=== PATIENT | male | born 1970 | race Caucasian/White ===

== ENCOUNTER 2017-10-05 10:41 | Observation (INO) | payer OTHER ==
[~2017-10-05] VITALS: Ht 175.3 cm; Wt 110.7 kg
[2017-10-05 11:19] LABS: BASOPHIL % 0.7 % (0-2); PLATELET COUNT 246 x10^3mcL (130-400); RED CELL DISTRIBUTION WIDTH 13.5 % (11.5-14.5)
[2017-10-05 11:30] LABS: CALCIUM 9.8 mg/dL (8.5-10.1); CARBON DIOXIDE 29.6 mmol/L (21-32); CHLORIDE SERUM 98 mmol/L (98-107); CREATININE SERUM 1.1 mg/dL (0.7-1.3); GFR1 > 60 mL/min; GLUCOSE SERUM 226 mg/dL (74-106); POTASSIUM SERUM 4.2 mmol/L (3.5-5.1); SODIUM SERUM 139 mmol/L (136-145)
[2017-10-05 11:35] LABS: ALBUMIN 4.4 g/dL (3.4-5.0); ALKALINE PHOSPHATASE 56 U/L (46-116); ALT/SGPT 106 U/L (16-63); AST/SGOT 69 U/L (15-37); BILIRUBIN TOTAL 1.01 mg/dL (0.20-1.00); TOTAL PROTEIN, SERUM 7.8 g/dL (6.4-8.2)
[2017-10-05 12:17] LABS: AMPHETAMINE QUAL UR NONE DETECTED (NEG <=1000)
[2017-10-05] MEDS ORDERED: GLYBURIDE (12:19)
[2017-10-05] MEDS ORDERED: JANUMET (12:20)
[2017-10-05] MEDS ORDERED: FLAXSEED OIL (12:20)
[2017-10-05 13:18] LABS: CHOLESTEROL/HDL RATIO 2.7; MAGNESIUM 1.3 mg/dL (1.8-2.4); PHOSPHOROUS 4.2 mg/dL (2.5-4.9)
[2017-10-05 13:24] LABS: T3 TOTAL 0.75 ng/mL
[2017-10-05 13:29] LABS: FREE T4 0.79 ng/dL (0.76-1.46); FREE THYROXINE INDEX 1.9 ug/dL (1.4-4.5); T4(THYROXINE) 5.7 ug/dL (4.7-13.3)
[2017-10-05 14:48] VITALS: BP 139/93
[2017-10-05] MEDS ORDERED: CARVEDILOL6.25 M1 PO (17:45)
[2017-10-05] MEDS ORDERED: GLYBURIDE5 MG PO (17:45)
[2017-10-05] MEDS ORDERED: AMLODIPINE BESYL5 M2 PO (17:46)
[2017-10-05] MEDS ORDERED: LIPITOR40 MG PO (17:47)
[2017-10-05] MEDS ORDERED: FENOFIBRATE MI130 MG PO (17:47)
[2017-10-05 21:51] VITALS: BP 105/71
[2017-10-06 05:32] VITALS: BP 133/85
[2017-10-06 06:47] LABS: BASOPHIL % 0.5 % (0-2); PLATELET COUNT 200 x10^3mcL (130-400); RED CELL DISTRIBUTION WIDTH 13.5 % (11.5-14.5)
[2017-10-06 07:39] LABS: CARBON DIOXIDE 26.3 mmol/L (21-32); CREATININE SERUM 1.6 mg/dL (0.7-1.3); MAGNESIUM 1.6 mg/dL (1.8-2.4); PHOSPHOROUS 3.4 mg/dL (2.5-4.9); POTASSIUM SERUM 4.1 mmol/L (3.5-5.1)
[2017-10-06 08:03] VITALS: Ht 175.3 cm; Wt 110.7 kg
[2017-10-06 09:38] VITALS: BP 114/70
[2017-10-06] MEDS ORDERED: FOL1 PO (12:13)
[2017-10-06] MEDS ORDERED: THERAGRAN-M1 TA4 PO (12:14)
[2017-10-06] MEDS ORDERED: THI100 PO (12:14)
[2017-10-06] MEDS ORDERED: ATIVAN1 MG PO (12:18)
[2017-10-06 13:32] VITALS: BP 111/71
== END 2017-10-06 14:46 | disposition home or self-care (01) | DRG 73 ==
LOC: ED 10:41 → DU 12:10
PROVIDERS: Emergency Medicine; Family Medicine
DX: G90.9 Disorder of the autonomic nervous system, unspecified (principal); N17.0 Acute kidney failure with tubular necrosis; F10.288 Alcohol dependence with other alcohol-induced disorder; K70.0 Alcoholic fatty liver; E83.42 Hypomagnesemia; F41.9 Anxiety disorder, unspecified; I16.0 Hypertensive urgency; D17.24 Benign lipomatous neoplasm of skin and subcutaneous tissue of left leg; E11.65 Type 2 diabetes mellitus with hyperglycemia; F19.10 Other psychoactive substance abuse, uncomplicated; E66.9 Obesity, unspecified; Z68.36 Body mass index [BMI] 36.0-36.9, adult
CPT/HCPCS: 82962; 83880; 84439; G0378; G0480; J2060; J3475; J3490; J7030; Q0092

== ENCOUNTER 2018-05-03 08:03 | Emergency (ER) | payer OTHER ==
[~2018-05-03 08:03] MED LIST: AMLODIPINE BESYL5 M2 PO; ATIVAN1 MG PO; CARVEDILOL6.25 M1 PO; FENOFIBRATE MI130 MG PO; FLAXSEED OIL; FOL1 PO; GLYBURIDE; GLYBURIDE5 MG PO; JANUMET; LIPITOR40 MG PO; THERAGRAN-M1 TA4 PO; THI100 PO
[2018-05-03 08:07] VITALS: Ht 175.3 cm
[2018-05-03 08:47] LABS: BASOPHIL % 0.5 % (0-2); PLATELET COUNT 204 x10^3mcL (130-400); RED CELL DISTRIBUTION WIDTH 14.1 % (11.5-14.5)
[2018-05-03 08:57] LABS: CARBON DIOXIDE 20.2 mmol/L (21-32); CHLORIDE SERUM 95 mmol/L (98-107); CREATININE SERUM 1.1 mg/dL (0.7-1.3); GFR1 > 60 mL/min; GLUCOSE SERUM 306 mg/dL (74-106); POTASSIUM SERUM 3.7 mmol/L (3.5-5.1); SODIUM SERUM 138 mmol/L (136-145)
[2018-05-03 09:02] LABS: ALBUMIN 4.4 g/dL (3.4-5.0); ALKALINE PHOSPHATASE 91 U/L (46-116); ALT/SGPT 114 U/L (16-63); AST/SGOT 141 U/L (15-37); BILIRUBIN TOTAL 1.28 mg/dL (0.20-1.00); HDL CHOLESTEROL 50 mg/dL (40-60); TOTAL PROTEIN, SERUM 7.8 g/dL (6.4-8.2)
[2018-05-03 09:11] LABS: CHOLESTEROL 232 mg/dL (<200); CHOLESTEROL/HDL RATIO 4.6; TRIGLYCERIDES 576 mg/dL (<150)
[2018-05-03 09:12] LABS: FREE T4 0.68 ng/dL (0.76-1.46); FREE THYROXINE INDEX 1.8 ug/dL (1.4-4.5); T4(THYROXINE) 5.7 ug/dL (4.7-13.3)
[2018-05-03 09:44] LABS: T3 TOTAL 0.6 ng/mL
[2018-05-03 09:54] LABS: AMPHETAMINE QUAL UR NONE DETECTED (See below)
[2018-05-03 10:21] VITALS: BP 161/117
[2018-05-03 10:22] LABS: UA SPECIFIC GRAVITY >=1.030 (1.005-1.035); microscopic required? YES; urine erythrocyte NEGATIVE (NEGATIVE)
== END 2018-05-03 10:25 | disposition home or self-care (01) ==
LOC: ED 08:03
PROVIDERS: Specialist
DX: F10.239 Alcohol dependence with withdrawal, unspecified (principal); F19.10 Other psychoactive substance abuse, uncomplicated; F41.9 Anxiety disorder, unspecified; E11.9 Type 2 diabetes mellitus without complications; I10 Essential (primary) hypertension; E78.00 Pure hypercholesterolemia, unspecified; Z90.89 Acquired absence of other organs
CPT/HCPCS: 36600; 82962; 84439; G0480; J2060; J3490; Q0092

== ENCOUNTER 2018-05-25 21:09 | Inpatient (IN) | payer OTHER ==
[~2018-05-25] VITALS: Ht 175.3 cm; Wt 106.1 kg
[2018-05-25 21:31] VITALS: Ht 175.3 cm; Wt 106.1 kg
[2018-05-25 22:34] LABS: UA SPECIFIC GRAVITY 1.025 (1.005-1.035); microscopic required? YES; urine erythrocyte NEGATIVE (NEGATIVE)
[2018-05-25 22:40] LABS: BASOPHIL % 0.2 % (0-2); PLATELET COUNT 175 x10^3mcL (130-400); RED CELL DISTRIBUTION WIDTH 13.2 % (11.5-14.5)
[2018-05-25 22:44] LABS: AMPHETAMINE QUAL UR NONE DETECTED (See below)
[2018-05-25 22:46] LABS: CARBON DIOXIDE 24.1 mmol/L (21-32); CHLORIDE SERUM 96 mmol/L (98-107); GFR1 > 60 mL/min; GLUCOSE SERUM 253 mg/dL (74-106); POTASSIUM SERUM 3.4 mmol/L (3.5-5.1); SODIUM SERUM 134 mmol/L (136-145)
[2018-05-25 22:49] LABS: ALBUMIN 4.5 g/dL (3.4-5.0); ALKALINE PHOSPHATASE 68 U/L (46-116); ALT/SGPT 92 U/L (16-63); AST/SGOT 97 U/L (15-37); BILIRUBIN TOTAL 0.9 mg/dL (0.20-1.00); LIPASE 268 IU/L (73-393); TOTAL PROTEIN, SERUM 7.8 g/dL (6.4-8.2)
[2018-05-26] MEDS ORDERED: JANUMET 50-1,01 EACH PO (01:41)
[2018-05-26] MEDS ORDERED: GLYBURIDE5 MG PO (01:41)
[2018-05-26] MEDS ORDERED: LOVAZA1 G1 PO (01:41)
[2018-05-26] MEDS ORDERED: NOR5 PO (01:42)
[2018-05-26] MEDS ORDERED: DIOVAN320 MG PO (01:42)
[2018-05-26] MEDS ORDERED: TRILIPIX135 M1 PO (01:42)
[2018-05-26] MEDS ORDERED: ATORVASTATIN CA40 M1 PO (01:42)
[2018-05-26 04:22] VITALS: BP 142/92
[2018-05-26] MEDS ORDERED: XANAX0.25 MG PO (13:47)
[2018-05-26 13:59] VITALS: BP 126/82
[2018-05-26 14:23] VITALS: BP 128/88
== END 2018-05-26 15:22 | disposition home or self-care (01) | DRG 392 ==
LOC: ED 21:09 → DU 05-26 01:15
PROVIDERS: Emergency Medicine
DX: K29.20 Alcoholic gastritis without bleeding (principal); F10.239 Alcohol dependence with withdrawal, unspecified; I10 Essential (primary) hypertension; E78.00 Pure hypercholesterolemia, unspecified; E78.5 Hyperlipidemia, unspecified; E11.65 Type 2 diabetes mellitus with hyperglycemia; F41.9 Anxiety disorder, unspecified; F32.9 Major depressive disorder, single episode, unspecified; Z90.49 Acquired absence of other specified parts of digestive tract; Z23 Encounter for immunization
CPT/HCPCS: 82962; 90658; G0480; J2060; J2270; J2405; J3411; J3475; J3490; J7030; Q0092; Q0162

== ENCOUNTER 2019-04-10 15:09 | Inpatient (IN) | payer OTHER ==
[~2019-04-10] VITALS: Ht 175.3 cm; Wt 101.6 kg
[~2019-04-10 15:09] MED LIST changes: +ATORVASTATIN CA40 M1 PO; +DIOVAN320 MG PO; +JANUMET 50-1,01 EACH PO; +LOVAZA1 G1 PO; +NOR5 PO; +TRILIPIX135 M1 PO; +XANAX0.25 MG PO
[2019-04-10 15:27] VITALS: Ht 175.3 cm; Wt 101.6 kg
[2019-04-10 16:12] LABS: PLATELET COUNT 160 x10^3mcL (130-400)
[2019-04-10 16:20] LABS: CALCIUM 8.3 mg/dL (8.5-10.1); CARBON DIOXIDE 23.8 mmol/L (21-32); CHLORIDE SERUM 92 mmol/L (98-107); CREATININE SERUM 0.9 mg/dL (0.7-1.3); GFR1 > 60 mL/min; GLUCOSE SERUM 266 mg/dL (74-106); POTASSIUM SERUM 3.3 mmol/L (3.5-5.1); SODIUM SERUM 136 mmol/L (136-145)
[2019-04-10 16:25] LABS: ALBUMIN 3.7 g/dL (3.4-5.0); ALKALINE PHOSPHATASE 168 U/L (46-116); ALT/SGPT 175 U/L (16-63); AST/SGOT 440 U/L (15-37); BILIRUBIN TOTAL 10.91 mg/dL (0.20-1.00); LIPASE 517 IU/L (73-393); TOTAL PROTEIN, SERUM 7.6 g/dL (6.4-8.2)
[2019-04-10 16:31] LABS: BASOPHIL % 0 % (0-2); RED CELL DISTRIBUTION WIDTH 15.2 % (11.5-14.5)
[2019-04-10] MEDS ORDERED: TRIBENZOR1 TA4 PO (21:22)
[2019-04-10] MEDS ORDERED: JANUMET 50-1,01 EACH PO (21:22)
[2019-04-10 23:23] VITALS: BP 140/91
[2019-04-11 05:35] VITALS: BP 160/97
[2019-04-11 06:26] LABS: BASOPHIL % 0.3 % (0-2); PLATELET COUNT 144 x10^3mcL (130-400)
[2019-04-11 06:39] LABS: ALBUMIN 3.4 g/dL (3.4-5.0); ALKALINE PHOSPHATASE 149 U/L (46-116); ALT/SGPT 155 U/L (16-63); AST/SGOT 396 U/L (15-37); BILIRUBIN DIRECT 9.36 mg/dL (0.0-0.2); BILIRUBIN TOTAL 11.22 mg/dL (0.20-1.00); CALCIUM 7.7 mg/dL (8.5-10.1); CARBON DIOXIDE 19.4 mmol/L (21-32); CHLORIDE SERUM 95 mmol/L (98-107); CREATININE SERUM 0.8 mg/dL (0.7-1.3); GFR1 > 60 mL/min; GLUCOSE SERUM 229 mg/dL (74-106); POTASSIUM SERUM 3.2 mmol/L (3.5-5.1); SODIUM SERUM 139 mmol/L (136-145)
[2019-04-11 06:52] LABS: RED CELL DISTRIBUTION WIDTH 15.5 % (11.5-14.5)
[2019-04-11 08:51] VITALS: BP 159/82
[2019-04-11 16:45] VITALS: BP 143/96
[2019-04-11 20:19] VITALS: BP 126/88
[2019-04-12 05:35] VITALS: BP 141/88
[2019-04-12 07:08] LABS: ALKALINE PHOSPHATASE 132 U/L (46-116); ALT/SGPT 137 U/L (16-63); AST/SGOT 295 U/L (15-37); BILIRUBIN DIRECT 10.34 mg/dL (0.0-0.2); CALCIUM 7.5 mg/dL (8.5-10.1); CARBON DIOXIDE 26.5 mmol/L (21-32); CHLORIDE SERUM 99 mmol/L (98-107); CREATININE SERUM 0.8 mg/dL (0.7-1.3); GFR1 > 60 mL/min; GLUCOSE SERUM 228 mg/dL (74-106); POTASSIUM SERUM 3.8 mmol/L (3.5-5.1); SODIUM SERUM 139 mmol/L (136-145); TOTAL PROTEIN, SERUM 6.6 g/dL (6.4-8.2)
[2019-04-12 07:27] LABS: BASOPHIL % 0.1 % (0-2); PLATELET COUNT 157 x10^3mcL (130-400)
[2019-04-12 07:40] LABS: RED CELL DISTRIBUTION WIDTH 15.5 % (11.5-14.5)
[2019-04-12 07:48] VITALS: BP 139/81
[2019-04-12 12:11] VITALS: BP 126/82
[2019-04-12] MEDS ORDERED: ORAPRED ODT30 MG PO (15:07)
[2019-04-12] MEDS ORDERED: LIB10 PO (15:07)
[2019-04-12 16:13] VITALS: BP 121/71
[2019-04-12 19:51] VITALS: BP 108/74
[2019-04-13 04:57] VITALS: BP 110/80
[2019-04-13 06:46] LABS: ALKALINE PHOSPHATASE 136 U/L (46-116); ALT/SGPT 135 U/L (16-63); AST/SGOT 317 U/L (15-37); CALCIUM 7.9 mg/dL (8.5-10.1); CARBON DIOXIDE 31.1 mmol/L (21-32); CHLORIDE SERUM 99 mmol/L (98-107); CREATININE SERUM 0.9 mg/dL (0.7-1.3); GFR1 > 60 mL/min; GLUCOSE SERUM 162 mg/dL (74-106); LIPASE 468 IU/L (73-393); POTASSIUM SERUM 3.3 mmol/L (3.5-5.1); SODIUM SERUM 139 mmol/L (136-145)
[2019-04-13 06:54] LABS: ALBUMIN 2.8 g/dL (3.4-5.0); TOTAL PROTEIN, SERUM 5.9 g/dL (6.4-8.2)
[2019-04-13 06:55] LABS: BILIRUBIN TOTAL 14.15 mg/dL (0.20-1.00)
[2019-04-13 07:36] VITALS: BP 112/72
[2019-04-13 11:52] VITALS: BP 135/97
[2019-04-13 12:07] VITALS: BP 135/97
== END 2019-04-13 12:25 | disposition home or self-care (01) | DRG 432 ==
LOC: ED 15:09 → MU 22:28
PROVIDERS: Emergency Medicine; Internal Medicine Pulmonary Disease; ADMIT Internal Medicine Pulmonary Disease
DX: K70.10 Alcoholic hepatitis without ascites (principal); K85.90 Acute pancreatitis without necrosis or infection, unspecified; E11.9 Type 2 diabetes mellitus without complications; I10 Essential (primary) hypertension; E78.5 Hyperlipidemia, unspecified; Z90.49 Acquired absence of other specified parts of digestive tract; F10.20 Alcohol dependence, uncomplicated; Y90.9 Presence of alcohol in blood, level not specified; K70.30 Alcoholic cirrhosis of liver without ascites
CPT/HCPCS: 82962; G0378; J2060; J2270; J2405; J2920; J3480; J7030; J7510

== ENCOUNTER 2019-06-26 23:45 | Inpatient (IN) | payer OTHER ==
[~2019-06-26] VITALS: Ht 175.3 cm; Wt 103.0 kg
[~2019-06-26 23:45] MED LIST changes: +LIB10 PO; +ORAPRED ODT30 MG PO; +TRIBENZOR1 TA4 PO; -XANAX0.25 MG PO
[2019-06-26 23:50] VITALS: Ht 175.3 cm; Wt 103.0 kg
--- NOTE | 2019-06-27 00:08 | NUR ---
PATIENT SEEN WITH COMPLAINT OF DIZZINESS AND HEART PALPITATION. PATIENT IS WAITING FOR MD EVALUATION.
--- NOTE | 2019-06-27 00:47 | NUR ---
PATIENT WAS SEEN BY MD. SALINE LOCK INSERTED. PATIENT MEDICATED WITH ATIVAN AND SALINE BOLUS IS INFUSING.
--- NOTE | 2019-06-27 00:48 | NUR ---
PARTABLE CHEST XRAY WAS DONE. REVIEW RN AT THE BEDSIDE, BLOOD WAS DRAWN.
--- NOTE | 2019-06-27 01:01 | NUR ---
ENCOURAGED PT TO PROVIDE URINE SAMPLE. REPORTS THAT HE WILL ATTEMPT WHEN HE IS ABLE TO.
[2019-06-27 01:08] LABS: PLATELET COUNT 108 x10^3mcL (130-400); RED CELL DISTRIBUTION WIDTH 14.6 % (11.5-14.5)
[2019-06-27 01:16] LABS: ALKALINE PHOSPHATASE 252 U/L (46-116); ALT/SGPT 81 U/L (16-63); AST/SGOT 303 U/L (15-37); CALCIUM 7.9 mg/dL (8.5-10.1); CARBON DIOXIDE 27.7 mmol/L (21-32); CHLORIDE SERUM 83 mmol/L (98-107); CREATININE SERUM 0.5 mg/dL (0.7-1.3); GFR1 > 60 mL/min; GLUCOSE SERUM 191 mg/dL (74-106); LIPASE 153 IU/L (73-393)
[2019-06-27 01:21] LABS: BAND NEUTROPHIL 1 % (0-10); BASOPHIL 0 % (0-2); MONOCYTE 3 % (0-7); SEGMENTED NEUTROPHILS 89 % (37-75)
[2019-06-27 01:22] LABS: rbc morphology (normal/abnorm) ABNORMAL (NORMAL)
[2019-06-27 01:28] LABS: ALBUMIN 2.2 g/dL (3.4-5.0); CHOLESTEROL 362 mg/dL (<200); CHOLESTEROL/HDL RATIO 45.3; HDL CHOLESTEROL 8 mg/dL (40-60); TOTAL PROTEIN, SERUM 6.1 g/dL (6.4-8.2); TRIGLYCERIDES 347 mg/dL (<150)
[2019-06-27 01:30] LABS: POTASSIUM SERUM 2.7 mmol/L (3.5-5.1); SODIUM SERUM 123 mmol/L (136-145)
[2019-06-27 01:31] LABS: BILIRUBIN TOTAL 19.98 mg/dL (0.20-1.00)
[2019-06-27 01:32] LABS: FREE T4 0.96 ng/dL (0.76-1.46); FREE THYROXINE INDEX 1.8 ug/dL (1.4-4.5); T4(THYROXINE) 5.4 ug/dL (4.7-13.3)
[2019-06-27 02:15] LABS: T3 TOTAL 0.71 ng/mL
--- NOTE | 2019-06-27 03:56 | NUR ---
REPORT WAS GIVEN TO MARY. PATIENT TRANSPORTED TO ROOM. MAGNESIUM INFUSING 225 ML/HR, PTASSIUM 10 MEQ/100 ML @ 50 ML/HR. SALINE INFUSING @ 100 ML/HR.
[2019-06-27 04:10] VITALS: BP 133/86
--- NOTE | 2019-06-27 04:45 | NUR ---
RECEIVED 2ND BAG OF POTASSIUM CHLORIDE FROM ER NURSE YAKOV. HUNG 2ND BAG OF POTASSIUM CHLORIDE 20 MEQ BAG INFUSING AT 50ML/HR.
--- NOTE | 2019-06-27 05:50 | NUR ---
STATED HAVINGA ABD PAIN 03/15. STATED NORCO IS NOT EFFECTIVE FOR HIM. PAGED DR. CASTILLO.
--- NOTE | 2019-06-27 07:14 | NUR ---
EYES CLOSED, BREATHING EVEN AND UNLABORED ON ROOM AIR. CALL LIGHT WITHIN EASY REACH. IN NO ACUTE DISTRESS. ENDORSED TO NURSE DANIEL.
--- NOTE | 2019-06-27 07:30 | NUR ---
RECIEVED REPORT FROM [facility] NURSE. PATIENT CURRENTLY AWAKE ALERT AND ORIENTED X 3. LUNG SOUNDS CLEAR TO AUSCULTATION. HEART RATE REGULAR. PATIENT REPORTS NAUSEA AND ABD PAIN OF 8. WILL MEDICATE PER EMAR. SAFETY PRECAUTIONS IN PLACE. CALL LIGHT WITHIN REACH.
[2019-06-27 08:04] VITALS: BP 109/77
[2019-06-27 11:23] LABS: UA SPECIFIC GRAVITY 1.015 (1.005-1.035); microscopic required? YES; urine erythrocyte NEGATIVE (NEGATIVE)
[2019-06-27 11:33] VITALS: BP 131/75
[2019-06-27 11:55] LABS: AMPHETAMINE QUAL UR NONE DETECTED (See below)
[2019-06-27 16:23] VITALS: BP 132/76
--- NOTE | 2019-06-27 18:50 | NUR ---
PATIENT IS CURRENTLY STABLE AND RESTING IN BED. IV TO LEFT AC IS INTACT. PATIENT DOES NOT REPORT ANY PAIN OR NAUSEA AT THIS TIME. SAFETY PRECAUTIONS IN PLACE. WILL ENDORSE CARE TO NIGHT NURSE.
--- NOTE | 2019-06-27 20:00 | NUR ---
SHIFT REASSESSMENT DONE.PATIENT ALERT AND ORIENTED.MAKE NEEDS KNOWN TO STAFF.GIRLFRIEND AT BEDSIDE.SUPPORTIVE OF CARE.LR AT 150 CC/ HOUR.K+ RIDER INFUSING.MILD GEN WEAKNESS.TELE 33 SR.ON FULL LIQ DIET TODATY BECAUSE OF NAUSEA,NO NAUSEA AT START OF THE SHIFT.SKIN INTACT,MULTIPLE TATOES.WANTING SLEEPING PILL TONIGHT.HEP SQ GIVEN.CALL LIGHT IN REACH.
[2019-06-27 20:35] VITALS: BP 107/70
--- NOTE | 2019-06-27 22:54 | NUR ---
PATIENT TELE OFF,CHECKED ON HIM,URINE ALL OVER THE FLOOR,SAYS HE HAD ACCIDENT,HOUSEKEEPING COMING OVER TO CLEAN FLOOR,REMINDED TO USE URINAL ONLY,NOT TO GET UP,ETOH WITHDRAWAL.
--- NOTE | 2019-06-27 23:27 | NUR ---
LIBRIUM GIVEN AT THIS TIME,ETOH PROTOCOL.
--- NOTE | 2019-06-28 01:19 | NUR ---
CHECKED AT INTERVALS FOR NEEDS AND SAFETY.ASLEEP,CALL LIGHT IN REACH.
[2019-06-28 05:45] VITALS: BP 97/64
--- NOTE | 2019-06-28 06:33 | NUR ---
I AND O DUNG.APPLIED EXTENSION TUBING ON THE IV SITE.WILL ENDORSE TO NEXT SHIFT.
--- NOTE | 2019-06-28 07:24 | NUR ---
RECIEVED REPORT FROM [facility] NURSE. PATIENT OBSERVED SLEEPING. RESPIRATIONS EVEN AND UNLABORED WITHIN NORMAL RANGE. IV TO LAC CURRENTLY INFUSING LR AT 150/HOUR. BED IN THE LOW POSITION. CALL LIGHT WITHIN REACH. WILL CONTINUE TO MONITOR.
[2019-06-28 07:40] LABS: PLATELET COUNT 99 x10^3mcL (130-400); RED CELL DISTRIBUTION WIDTH 15.2 % (11.5-14.5)
[2019-06-28 07:52] LABS: ALKALINE PHOSPHATASE 246 U/L (46-116); ALT/SGPT 64 U/L (16-63); AST/SGOT 225 U/L (15-37); CARBON DIOXIDE 29.9 mmol/L (21-32); CHLORIDE SERUM 97 mmol/L (98-107); CREATININE SERUM 0.6 mg/dL (0.7-1.3); GFR1 > 60 mL/min; GLUCOSE SERUM 160 mg/dL (74-106); MAGNESIUM 1.9 mg/dL (1.8-2.4); POTASSIUM SERUM 3.5 mmol/L (3.5-5.1); SODIUM SERUM 133 mmol/L (136-145)
[2019-06-28 07:53] LABS: TOTAL PROTEIN, SERUM 5.6 g/dL (6.4-8.2)
[2019-06-28 07:55] LABS: BILIRUBIN TOTAL 22.12 mg/dL (0.20-1.00)
[2019-06-28 08:30] VITALS: BP 96/71
[2019-06-28 10:40] LABS: BAND NEUTROPHIL 2 % (0-10); BASOPHIL 0 % (0-2); MONOCYTE 4 % (0-7); SEGMENTED NEUTROPHILS 86 % (37-75)
[2019-06-28 10:41] LABS: rbc morphology (normal/abnorm) ABNORMAL (NORMAL)
[2019-06-28 10:43] LABS: target cell (codocyte) 2+
[2019-06-28 10:45] LABS: PLATELET MORPHOLOGY PLATELETS DECREASED
--- NOTE | 2019-06-28 11:16 | NUR ---
CRITICAL VALUE OF BILIRUBEN REPORTED BY SHLOMO. PHYSCIBEBA CURRENTLY AT BEDSIDE WITH PATIENT AND NOTIFIED OF BILIRUBEN LEVEL.
[2019-06-28 12:09] VITALS: BP 103/70
[2019-06-28 16:40] VITALS: BP 105/75
--- NOTE | 2019-06-28 18:50 | NUR ---
LR CURRENTLY INFUSING AT 150/HOUR TO LEFT AC. PATIENT RESTING IN BED. RESPIRATION EQUAL AND UNLABORED. GIRLFRIEND AT BEDSIDE. NO REPORT OF PAIN AT THIS TIME. BED IN LOW POSITION. WILL ENDROSE CARE TO NIGHT NIGHT NURSE.
--- NOTE | 2019-06-28 19:20 | NUR ---
RECEIVED PT IN BED RESTING WITH FAMILY AT BEDSIDE.LUNG SOUND CTA. BREATHING EVEN AND UNLABORED. DENIES ANY PAIN AT THIS TIME. BOWEL SOUND ACTIVE. ABDOMEN DISTENDED AND ROUND.IV SITE PATENT AND INTACT. BED IN LOWEST POSITION,CALL LIGHT WITHIN REACH. WILL CONTINUE TO MONITOR.
[2019-06-28 20:06] VITALS: BP 102/59
[2019-06-29 05:28] VITALS: BP 107/75
--- NOTE | 2019-06-29 05:51 | NUR ---
PT APPEARS TO BE SLEEPING. NO DISTRESS NOTED. NO C/O PAIN AT THIS TIME. BED IN LOWEST POSITION,CALL LIGHT WITHIN REACH. WILL CONTINUE TO MONITOR.
--- NOTE | 2019-06-29 06:51 | NUR ---
PT C/O ANXIETY. MEDICATED ATIVAN 2MG IVP ORDERED. WILL CONTINUE TO MONITOR.
--- NOTE | 2019-06-29 07:30 | NUR ---
CARE ENDORSED TO DAY NURSE ASHKAN.
[2019-06-29 08:00] LABS: PLATELET COUNT 114 x10^3mcL (130-400); RED CELL DISTRIBUTION WIDTH 15.5 % (11.5-14.5)
--- NOTE | 2019-06-29 08:00 | NUR ---
RECIEVED REPORT FROM [facility] NURSE. PATIENT AWAKE AND ALERT AND ORIENTED. NS INFUSING TO LAC AT 150/HOUR. NO REPORTS OF DISTRESS FROM PATIENT AT THIS TIME. BOWEL SOUNDS HYPOACTIVE. LATEST BOWEL MOVEMENT ON 06/28/19. RECIEVED CRITICAL REPORT FROM LAB OF BILIRUBEN LEVEL OF 22.0. PHYSICIAN PRESIDING OVER CARE NOTIFIED. LUNG SOUNDS CLEAR TO AUSCULTATION.
[2019-06-29 08:10] LABS: ALKALINE PHOSPHATASE 216 U/L (46-116); ALT/SGPT 57 U/L (16-63); AST/SGOT 171 U/L (15-37); CALCIUM 8.1 mg/dL (8.5-10.1); CARBON DIOXIDE 25.9 mmol/L (21-32); CHLORIDE SERUM 102 mmol/L (98-107); CREATININE SERUM 0.7 mg/dL (0.7-1.3); GFR1 > 60 mL/min; GLUCOSE SERUM 144 mg/dL (74-106); POTASSIUM SERUM 3.3 mmol/L (3.5-5.1); SODIUM SERUM 138 mmol/L (136-145)
[2019-06-29 08:26] VITALS: BP 107/69
[2019-06-29 08:41] LABS: ALBUMIN 1.9 g/dL (3.4-5.0); TOTAL PROTEIN, SERUM 5.4 g/dL (6.4-8.2)
[2019-06-29 10:42] LABS: BAND NEUTROPHIL 1 % (0-10); BASOPHIL 0 % (0-2); MONOCYTE 4 % (0-7); SEGMENTED NEUTROPHILS 85 % (37-75)
[2019-06-29 10:45] LABS: rbc morphology (normal/abnorm) ABNORMAL (NORMAL)
[2019-06-29 10:46] LABS: target cell (codocyte) 2+
[2019-06-29 12:14] VITALS: BP 95/66
--- NOTE | 2019-06-29 13:49 | NUR ---
1. Recommend advance diet as tolerated to Regular diet.
--- NOTE | 2019-06-29 13:49 | NUR ---
Initial Nutrition Assessment: Romero Lopez 255T-B Dx: Severe Hypokalemia and ETOH withdrawal PMHx: HTN, DM, high chol, alcoholic hepatitis PSHx: Appendectomy Labs: 06/29: K:3.3L, BH, Ca:8.1L, T bili:22H, AST:171H, H/H:11.3/33L (06/27) TH, LDL:343H, HDL:8L, Meds: Ativan, Cephulac, Diovan, Folic acid, Humulin, Lactated ringers, Librium, Mg sulfate, Prednisone, Prilosec, Vitamin B-1, Xanax, Zofran, Heparin Diet: Full liquid PO Intakes: 06/27: B:50% L:25% D:90% 06/28:B:80% D:60% PO intake: 61% Ht: 69in, 5'9: Wt:227#, 103kg BMI: 33.5kg/m2 (obese) IBW:160#73kg %IBW:142% UBW: Age: 48 y/o male Food Allergies: Skin: intact Carlos A:20 Edema: none GI: active bowel sounds Last BM:06/28 Nursing Trigger: poor PO >3days Per ER documents 06/27, pt presents with c/o heart palpitations, nausea and dizziness. Pt admits to binge drinking the past couple of days. Pt also with c/o abd distention. During visit, pt was asleep and unarousable. Per nurse note, pt's PO intake: 61% x 5 meals. Will continue to monitor. Problem with: N/V/D/C: no Problems with: Chewing/Swallowing: no Current appetite: fair Recent wt changes: %wt change: Vitamin/Supplement: unable to obtain Special Diet at Home: unable to obtain Physical activity: unable to obtain Education: unable to provide due to pt asleep Estimated Nutritional Needs Based on ideal body weight of 73kg. Energy: 1415-2909 kcal/d (25-30 kcal/kg for maintenance) Protein: 73 gm/d (1 gm/kg for maintenance) Fluid: 1825-2190mL/d (1 mL/kcal) or per MD. Nutrition Diagnosis 1. Inadequate protein/energy intake related to insufficient kcals per diet order as evidenced by pt on full liquid diet. Intervention 1. Recommend advance diet as tolerated to Regular diet. Monitor/Evaluate Goal: Monitor: PO intakes, Labs, GI function, Skin integrity, Weights. F/U in 3-5 days as moderate risk 07/02-
--- NOTE | 2019-06-29 14:07 | NUR ---
PATIENT CURRENTLY ASKING WHEN HE CAN BEGIN EATING REGULAR FOOD. PATIENT ON FULL LIQUID DIET X 2 DAYS. WILL COMMUNICATE WITH [employer] COLORING OPERATOR PHYSICIAN PROSIDING OVER PATIENT'S CARE.
[2019-06-29 17:53] VITALS: BP 95/68
--- NOTE | 2019-06-29 19:05 | NUR ---
PATIENT AWAKE AND ORIENTED RESTING IN BED. AT BEDSIDE. BED IN LOW POSITION. SAFETY PRECAUTIONS IN PLACE. WILL ENDORSE CARE TO NIGHT NURSE. LR CURRENTLY INFUSING AT 150/HR.
--- NOTE | 2019-06-29 19:30 | NUR ---
PT IS A/O X4, DROWSY. TELE #33, NSR. DENIES ANY CHEST PAIN OR PRESSURE. PULSES ARE PRESENT. NO EDEMA NOTED. LUNGS CLEAR IN ALL RO. ON RA, DENIES ANY SOB. EQUAL CHEST RISE AND FALL. BOWEL SOUNDS PRESENT X4. DENIES ANY ABD PAIN OR DISTRESS. GENERAL WEAKNESS. SKIN WARM AND INTACT. DENIES ANY PAIN AT THIS TIME. IV ON LAC INTACT AND PATENT. NO SIGN OF INFILTRATION OR IRRITATION. SPOUSE AT BEDISDE. BED IS AT LOWEST SETTING. CALL LIGHT WITHIN REACH. WILL CONTINUE TO MONTIOR.
[2019-06-29 20:20] VITALS: BP 95/59
--- NOTE | 2019-06-30 01:54 | NUR ---
PT IS RESTING IN BED. PT WAS C/O BEING ANXIOUS AND REQUESTED ATIVAN. IT WAS GIVEN PER EMAR. PT STATES HE IS MORE CALM. SPOUSE IS AT BEDSIDE. PT REFUSED LIBRIUM, EDUCATION WAS PROVIDED BUT PT REFUSED AGAIN, STATING HE IS NO LONGER GOING THROUGH WITHDRAWL. IV INTACT. BED IS AT LOWEST SETTING. CALL LIGHT WITHIN REACH. WILL CONTINUE TO MONTIOR.
--- NOTE | 2019-06-30 03:40 | NUR ---
PT IS C/O BEING RESTLESS. REQUESTED ATIVAN. GIVEN PER EMAR. WILL CONTINUE TO MONITOR.
[2019-06-30 05:27] VITALS: BP 107/70
--- NOTE | 2019-06-30 06:28 | NUR ---
PT IS RESTING IN BED. REFUSED THE LIBRIUM THIS MORNING. EDUCATION PROVIDED. PT STATED HE WILL ONLY TAKE IT IF THE DOSE WAS LOWERED. NO ACUTE EVENT OCCURED AT NIGHT. BED IS AT LOWEST SETTING. CALL LIGHT WITHIN REACH. WILL ENDORSE TO AM NURSE.
[2019-06-30 06:30] LABS: CALCIUM 7.7 mg/dL (8.5-10.1); CARBON DIOXIDE 23.6 mmol/L (21-32); CHLORIDE SERUM 104 mmol/L (98-107); CREATININE SERUM 0.7 mg/dL (0.7-1.3); GFR1 > 60 mL/min; GLUCOSE SERUM 133 mg/dL (74-106); POTASSIUM SERUM 3.7 mmol/L (3.5-5.1); SODIUM SERUM 137 mmol/L (136-145)
[2019-06-30 06:35] LABS: ALBUMIN 1.8 g/dL (3.4-5.0)
[2019-06-30 06:40] LABS: PLATELET COUNT 123 x10^3mcL (130-400); RED CELL DISTRIBUTION WIDTH 15.8 % (11.5-14.5)
[2019-06-30 07:11] LABS: ALT/SGPT 50 U/L (16-63); AST/SGOT 134 U/L (15-37); BILIRUBIN DIRECT 19.3 mg/dL (0.0-0.2)
[2019-06-30 07:12] LABS: ALKALINE PHOSPHATASE 200 U/L (46-116)
[2019-06-30 07:27] VITALS: BP 101/69
[2019-06-30 07:28] LABS: TOTAL PROTEIN, SERUM 5.2 g/dL (6.4-8.2)
--- NOTE | 2019-06-30 07:40 | NUR ---
RECEIVED IN NO RESP. DISTRESS. AWAKE AND ALERT. NO C/O PAIN AT THIS TIME. IVF INFUSING WELL AND SITE CLEAR. SAFERY MEASURES AND SEIZURE PREC. IN PLACE. CALL LIGHT WITHIN REACH. WILL CONTINUE WITH PLAN OF CARE.
--- NOTE | 2019-06-30 08:51 | NUR ---
PT COMPLAINT OF NAUSEA SO MEDICATED WITH ZOFRAN. PT ALSO GIVEN ATIVAN FOR ANXIETY.
[2019-06-30 11:53] VITALS: BP 105/63
[2019-06-30 12:16] LABS: BAND NEUTROPHIL 0 % (0-10); BASOPHIL 0 % (0-2); MONOCYTE 3 % (0-7); PLATELET MORPHOLOGY PLATELETS DECREASED; SEGMENTED NEUTROPHILS 83 % (37-75); rbc morphology (normal/abnorm) ABNORMAL (NORMAL)
--- NOTE | 2019-06-30 12:34 | NUR ---
ATIVAN GIVEN FOR ANXIETY PER ORDER.
--- NOTE | 2019-06-30 16:24 | NUR ---
FAMILY AT BEDSIDE. NO DISTRESS NOTED. NO C/O PAIN AT THIS TIME. IVF INFUSING WELL.
[2019-06-30 16:38] VITALS: BP 115/74
--- NOTE | 2019-06-30 18:59 | NUR ---
NURSING CO-SIGN THE DOCUMENTATION ENTERED BY THE STUDENT NURSE HAS BEEN REVIEWED. REVIEWED/CO-SIGNED BY: Dariana Bang DOCUMENTATION DONE BY: EMRE CASE-STUDENT NURSE
--- NOTE | 2019-06-30 19:00 | NUR ---
PT REMAINS IN NO DISTRESS, CALM AT THIS TIME. NO C/O PAIN AT THIS TIME. FAMILY AT BEDSIDE. IVF INFUSING WELL AND NEW LINE PATENT. VS WNL. CALL LIGHT WITHIN REACH. WILL BE ENDORSED TO INCOMING SHIFT.
--- NOTE | 2019-06-30 20:00 | NUR ---
RECEIVED PT IN BED, RESTING QUIETLY. A/O X4. DENIES HEADACHE/DIZZINESS. RESP. EVEN AND UNLABORED. ON ROOM AIR, NO ACUTE DISTRESS NOTED. AFEBRILE AND VITAL SIGNS STABLE. SR ON THE MONITOR, DENIES CP OR PRESSURE. IVF,LR AT 150ML/HR, INTACT AND INFUSING VIA LAC, SITE CLEAR. ON SEIZURE PRECAUTION.ABLE TO MOVE ALL EXTS. ABD. SOFT, NO N/V NOTED. CALL LIGHT WITHIN REACH. WILL CONTINUE TO MONITOR.
[2019-06-30 20:34] VITALS: BP 104/70
--- NOTE | 2019-06-30 22:03 | NUR ---
REQUESTING ATIVAN FOR ANXIETY.MEDICATED S ORDERED. WILL CONTINUE TO MONITOR.
--- NOTE | 2019-07-01 00:43 | NUR ---
IV SITE LEAKING, DISCONT. NEW IV RESTARTED ON RT HAND WITH #22G ANGIO. IVF INFUSING AT THIS TIME.WILL CONTINUE TO MONITOR.
--- NOTE | 2019-07-01 00:46 | NUR ---
REQUESTING ATIVAN FOR ANXIETY, MEDICATED ORDERED. WILL CONTINUE TO MONITOR.
[2019-07-01 05:35] VITALS: BP 97/64
--- NOTE | 2019-07-01 06:15 | NUR ---
AFEBRILE AND VITAL SIGNS STABLE. DENIES CHEST PAIN OR ANY DISCOMFORT AT THIS TIME. MEDICATED FOR ANXIETY PER PT,S REQUEST. CALM. IVF INTACT AND INFUSING WELL, SITE CLEAR. RESP. EVEN AND UNLABORED. NO ACUTE DISTRESS NOTED. WILL CONTINUE TO MONITOR.
--- NOTE | 2019-07-01 07:09 | NUR ---
RECEIVED PT FROM MOTORCYCLE ASSEMBLER NURSE. PT IN BED SLEEPING, AROUSABLE, RESP E/U ON RA. NO SIGNS OF ACUTE DISTRESS NOTED. ON TELE 33 SHOWING NSR. IV TO LAC W/ NO SIGNS OF INFILTRATION, IVF INFUSING WELL. BED IN LOWEST POSITION AND CALL LIGHT WITHIN REACH. WILL CONTINUE TO MONITOR.
[2019-07-01 07:23] VITALS: BP 109/62
[2019-07-01 07:59] LABS: PLATELET COUNT 124 x10^3mcL (130-400); RED CELL DISTRIBUTION WIDTH 16.3 % (11.5-14.5)
[2019-07-01 08:17] LABS: ALKALINE PHOSPHATASE 214 U/L (46-116); ALT/SGPT 48 U/L (16-63); AST/SGOT 118 U/L (15-37); CALCIUM 7.9 mg/dL (8.5-10.1); CARBON DIOXIDE 21.1 mmol/L (21-32); CHLORIDE SERUM 105 mmol/L (98-107); CREATININE SERUM 0.6 mg/dL (0.7-1.3); GFR1 > 60 mL/min; GLUCOSE SERUM 150 mg/dL (74-106); MAGNESIUM 1.8 mg/dL (1.8-2.4); POTASSIUM SERUM 3.6 mmol/L (3.5-5.1); SODIUM SERUM 138 mmol/L (136-145)
[2019-07-01 08:18] LABS: TOTAL PROTEIN, SERUM 5.5 g/dL (6.4-8.2)
[2019-07-01 08:24] LABS: BILIRUBIN DIRECT 20.67 mg/dL (0.0-0.2)
[2019-07-01 09:20] LABS: BAND NEUTROPHIL 2 % (0-10); BASOPHIL 0 % (0-2); MONOCYTE 8 % (0-7); SEGMENTED NEUTROPHILS 75 % (37-75)
[2019-07-01 09:22] LABS: rbc morphology (normal/abnorm) ABNORMAL (NORMAL)
--- NOTE | 2019-07-01 12:08 | NUR ---
PT IN BED SLEEPING, AROUSABLE, RESP E/U ON RA. NO SIGNS OF ACUTE DISTRESS NOTED. BED IN LOWEST POSITION AND CALL LIGHT WITHIN REACH. PT AT BEDSIDE. WILL CONTINUE TO MONITOR.
[2019-07-01 12:12] VITALS: BP 102/65
[2019-07-01] MEDS ORDERED: XANAX0.25 MG PO (13:09)
--- NOTE | 2019-07-01 13:50 | NUR ---
PT DISCHARGED. REVIEWED DISCHARGE PACKET W/ PT INCLUDING NEW RX MEDS AND FOLLOW UP INSTRUCTIONS. PT AOX4, RESP E/U ON RA, VS STABLE, DENIES PAIN. IV TO RAC REMOVED, CATH INTACT, GAUZE DRESSING APPLIED. PT ESCORTED TO DISHARGE OFFICE VIA WHEELCHAIR BY AND [employer] EXAMINER MICHEAL W/ NO ACUTE INCIDENCE.
== END 2019-07-01 15:30 | disposition home or self-care (01) | DRG 441 ==
LOC: ED 23:45 → DU 06-27 02:24
PROVIDERS: Internal Medicine Pulmonary Disease; Specialist; ADMIT Internal Medicine Pulmonary Disease
DX: K72.00 Acute and subacute hepatic failure without coma (principal); K83.1 Obstruction of bile duct; F10.239 Alcohol dependence with withdrawal, unspecified; E87.1 Hypo-osmolality and hyponatremia; K70.10 Alcoholic hepatitis without ascites; E87.6 Hypokalemia; Z68.33 Body mass index [BMI] 33.0-33.9, adult
CPT/HCPCS: 82962; 83880; 84439; G0378; G0480; J1644; J2060; J2270; J2405; J3475; J3480; J7120; J7512; Q0092